=== PATIENT | female | born 1985 | race Caucasian/White ===

== ENCOUNTER 2019-01-21 15:41 | Emergency (ER) | payer MEDICARE ==
[~2019-01-21] VITALS: Ht 157.5 cm; Wt 90.9 kg
[2019-01-21 15:52] VITALS: Ht 157.5 cm; Wt 90.9 kg
[2019-01-21] MEDS ORDERED: FLUVOXAMINE MA100 M1 PO ×2 (16:00)
[2019-01-21] MEDS ORDERED: OMEPRAZOLE20 M1 PO (16:00)
[2019-01-21] MEDS ORDERED: ZOCOR40 MG PO (16:00)
[2019-01-21] MEDS ORDERED: LAMICTAL200 M1 PO (16:01)
[2019-01-21] MEDS ORDERED: TOPAMAX50 MG PO ×2 (16:02)
[2019-01-21] MEDS ORDERED: KLONOPIN1 MG PO (16:03)
[2019-01-21] MEDS ORDERED: GLUCOPHAGE850 MG PO (16:03)
[2019-01-21] MEDS ORDERED: HALOPERIDOL2 MG PO (16:03)
[2019-01-21] MEDS ORDERED: FOLATE0.4 MG PO (16:04)
[2019-01-21 16:52] LABS: BASOPHILS 0.3 % (0-2); EOSINOPHILS 7.6 % (0-7); HEMATOCRIT 37.8 % (36.0-48.0); HEMOGLOBIN 12.2 g/dL (12-16); IMMATURE GRANULOCYTES 0.3 % (0-5); MCH 28.4 pg (26.0-34.0); MCHC 32.3 g/dL (31.0-37.0); MCV 87.9 fL (80.0-100.0); MEAN PLATELET VOLUME 10.9 fL (7.4-10.4); MONOCYTES 6.7 % (2-11); NEUTROPHILS 51.1 % (40-80); PLATELET COUNT 273 10x3/uL (130-400); RDW 13.4 % (11.5-14.5)
[2019-01-21 16:56] LABS: APPEARANCE CLEAR (CLEAR); BILIRUBIN NEGATIVE (NEGATIVE); COLOR STRAW (YELLOW); GLUCOSE NEGATIVE (NEGATIVE); KETONE NEGATIVE (NEGATIVE); NITRITE NEGATIVE (NEGATIVE); PROTEIN NEGATIVE (NEGATIVE); SPECIFIC GRAVITY 1.005 (1.005-1.020); UROBILINOGEN NORMAL (NORMAL)
[2019-01-21 16:58] LABS: BACTERIA FEW /hpf (NONE SEEN); RED CELLS - URINE 0-5 /hpf (0-5); WHITE CELLS - URINE OCC /hpf (0-5)
[2019-01-21 17:18] LABS: ALKALINE PHOSPHATASE 63 U/L (46-116); ALT (SGPT) 26 U/L (10-68); BILIRUBIN - TOTAL 0.22 mg/dL (0.2-1.3); CALC OSMOLALITY 266 mosm/kg (275-300); CALCIUM 8.2 mg/dL (8.5-10.1); CHLORIDE - SERUM 102 mmol/L (98-107); CREATININE - SERUM 0.8 mg/dL (0.6-1.3); GLUCOSE 100 mg/dL (74-106); POTASSIUM - SERUM 3.6 mmol/L (3.5-5.1); PROTEIN - SERUM 6.7 g/dL (6.4-8.2); SODIUM 135 mmol/L (136-145); UREA NITROGEN 4 mg/dL (7-18); eGFR NON AFRICAN AMERICAN 89 mL/min (90-120)
[2019-01-21] MEDS ORDERED: MACROBID100 MG PO (18:17)
[2019-01-21 18:31] VITALS: BP 112/78
== END 2019-01-21 18:28 | disposition home or self-care (01) ==
LOC: D.ER 15:41
PROVIDERS: Family Medicine
DX: N39.0 Urinary tract infection, site not specified (principal); K59.01 Slow transit constipation; E78.5 Hyperlipidemia, unspecified; F32.9 Major depressive disorder, single episode, unspecified; F41.9 Anxiety disorder, unspecified; K21.9 Gastro-esophageal reflux disease without esophagitis; F20.9 Schizophrenia, unspecified

== ENCOUNTER 2019-02-15 14:23 | Inpatient (IN) | payer MEDICARE ==
[~2019-02-15] VITALS: Ht 157.5 cm; Wt 81.8 kg
[~2019-02-15 14:23] MED LIST: FLUVOXAMINE MA100 M1 PO; FOLATE0.4 MG PO; GLUCOPHAGE850 MG PO; HALOPERIDOL2 MG PO; KLONOPIN1 MG PO; LAMICTAL200 M1 PO; MACROBID100 MG PO; OMEPRAZOLE20 M1 PO; TOPAMAX50 MG PO; ZOCOR40 MG PO
[2019-02-15 15:19] LABS: BASOPHILS 0.4 % (0-2); EOSINOPHILS 5.4 % (0-7); HEMATOCRIT 38.9 % (36.0-48.0); IMMATURE GRANULOCYTES 0.2 % (0-5); LYMPHOCYTES 27.4 % (15-50); MCH 28.5 pg (26.0-34.0); MCHC 33.4 g/dL (31.0-37.0); MCV 85.3 fL (80.0-100.0); MEAN PLATELET VOLUME 10.2 fL (7.4-10.4); MONOCYTES 7.5 % (2-11); NEUTROPHILS 59.1 % (40-80); PLATELET COUNT 297 10x3/uL (130-400); RBC 4.56 10x6/uL (4.00-5.40); RDW 13.2 % (11.5-14.5)
[2019-02-15 15:29] LABS: APTT 29.8 SECONDS (22.8-39.4); INR 1.13 (0.85-1.17)
[2019-02-15 15:44] LABS: ALBUMIN 3.2 g/dL (3.4-5.0); ALKALINE PHOSPHATASE 69 U/L (46-116); ALT (SGPT) 29 U/L (10-68); BILIRUBIN - TOTAL 0.16 mg/dL (0.2-1.3); CALC OSMOLALITY 272 mosm/kg (275-300); CALCIUM 8.7 mg/dL (8.5-10.1); CARBON DIOXIDE 27.9 mmol/L (21.0-32.0); CHLORIDE - SERUM 103 mmol/L (98-107); CREATININE - SERUM 0.8 mg/dL (0.6-1.3); GLUCOSE 99 mg/dL (74-106); POTASSIUM - SERUM 4.5 mmol/L (3.5-5.1); PROTEIN - SERUM 7.4 g/dL (6.4-8.2); SODIUM 137 mmol/L (136-145); UREA NITROGEN 9 mg/dL (7-18); eGFR NON AFRICAN AMERICAN 89 mL/min (90-120)
[2019-02-15 18:36] VITALS: Ht 157.5 cm; Wt 81.8 kg
--- NOTE | 2019-02-15 20:00 | NUR ---
RESTING IN BED, RIGHT FOOT WRAPED WITH GURPREET WRAP AND ELEVATED ON PILLOWS, MOTHER AT BEDSIDE, CALL LIGHT IN REACH
[2019-02-15 21:20] VITALS: BP 113/70
[2019-02-16 04:38] VITALS: BP 132/85
--- NOTE | 2019-02-16 08:00 | NUR ---
PT RESTING IN BED WATCHING TV. NO ACUTE DISTRESS NOTED. RESP EVEN AND UNLABORED. REPORTS PAIN TO RIGHT ANKLE 6/10, BUT REPORTS PAIN MEDICATION BEING GIVEN AT EARLIER TIME AND HELPS TO RELEIVE PAIN. PT REMAINS NPO FOR SURGERY. SALINE LOC TO RIGHT HAND INTACT WITHOUT REDNESS OR EDEMA. F/C PATENT TO GRAVITY. DENIES FURTHER NEEDS. CL WITHIN REACH. ENCOURAGED TO CALL WITH NEEDS. CONTINUE POC
[2019-02-16 08:29] VITALS: BP 125/75
[2019-02-16 09:56] LABS: APPEARANCE CLEAR (CLEAR); BILIRUBIN NEGATIVE (NEGATIVE); COLOR YELLOW (YELLOW); GLUCOSE NEGATIVE (NEGATIVE); KETONE NEGATIVE (NEGATIVE); NITRITE NEGATIVE (NEGATIVE); PROTEIN TRACE mg/dL (NEGATIVE); SPECIFIC GRAVITY 1.015 (1.005-1.020); UROBILINOGEN NORMAL (NORMAL)
[2019-02-16 09:57] LABS: BACTERIA FEW /hpf (NONE SEEN); EPITHELIAL CELLS OCC /hpf (0-5); WHITE CELLS - URINE OCC /hpf (0-5)
[2019-02-16 12:30] VITALS: BP 117/80
--- NOTE | 2019-02-16 13:40 | NUR ---
PT TAKEN VIA BED TO PRE OP. NO ACUTE DISTRESS NOTED.
[2019-02-16 16:57] VITALS: BP 133/85
--- NOTE | 2019-02-16 20:00 | NUR ---
ALERT RESTIGN IN BED, DENIES PAINACE WRAP INPLACE TO LEFT FOOT, SEE SHIFT ASSESSMENT, MOTHER AT BEDSIDE, CALL LIGHT IN REACH
[2019-02-16 22:16] VITALS: BP 135/85
[2019-02-17 04:51] VITALS: BP 101/63
[2019-02-17 05:21] LABS: BASOPHILS 0 % (0-2); EOSINOPHILS 0 % (0-7); HEMATOCRIT 39.8 % (36.0-48.0); IMMATURE GRANULOCYTES 0.3 % (0-5); LYMPHOCYTES 10.6 % (15-50); MCH 28.6 pg (26.0-34.0); MCHC 32.7 g/dL (31.0-37.0); MEAN PLATELET VOLUME 10.6 fL (7.4-10.4); MONOCYTES 2.9 % (2-11); NEUTROPHILS 86.2 % (40-80); PLATELET COUNT 319 10x3/uL (130-400); RBC 4.55 10x6/uL (4.00-5.40); RDW 13.6 % (11.5-14.5)
[2019-02-17 05:27] LABS: MCV 87.5 fL (80.0-100.0); WBC 13.7 10x3/uL (4.8-10.8)
[2019-02-17 05:56] LABS: ALBUMIN 3.2 g/dL (3.4-5.0); ALKALINE PHOSPHATASE 64 U/L (46-116); ALT (SGPT) 24 U/L (10-68); BILIRUBIN - TOTAL 0.31 mg/dL (0.2-1.3); CALC OSMOLALITY 278 mosm/kg (275-300); CALCIUM 8.6 mg/dL (8.5-10.1); CARBON DIOXIDE 26.5 mmol/L (21.0-32.0); CHLORIDE - SERUM 104 mmol/L (98-107); CREATININE - SERUM 0.7 mg/dL (0.6-1.3); GLUCOSE 130 mg/dL (74-106); PROTEIN - SERUM 7.7 g/dL (6.4-8.2); SODIUM 139 mmol/L (136-145); UREA NITROGEN 10 mg/dL (7-18); eGFR NON AFRICAN AMERICAN > 90 mL/min (90-120)
--- NOTE | 2019-02-17 07:59 | NUR ---
PT RESTING IN BED WITH EYES CLOSED. CHEST RISING AND FALLING. NO S/S OF ACUTE DISTRESS. CL IN PLACE.
[2019-02-17 08:30] VITALS: BP 115/70
--- NOTE | 2019-02-17 12:45 | NUR ---
DC F/C. 750 ML OF YELLOW URINE NOTED IN BAG
--- NOTE | 2019-02-17 13:43 | MORECARE ---
CASE MANAGEMENT DISCHARGE SUMMARY PATIENT: LAZ TREVIÑO UNIT: [id number] ADM DATE: 02/16/19 AGE: 33 : [birth year] SEX: F ROOM/BED: D.2210 AUTHOR: LUDA PENA PHYSICIAN: REFERRING PHYSICIAN: MARIE HERNANDEZ MD DATE OF SERVICE: 02/17/19 Discharge Plan Patient Name: LAZ TREVIÑO Facility: [facility]:[place] : 1985 Planned Disposition: Home or Self Care Anticipated Discharge Date: Discharge Date: Expected LOS: Initial Reviewer: [email or web address] Initial Review Date: 02/15/2019 Generated: 02/17/19 2:43 pm DCPIA - Discharge Planning Initial Assessment Updated by [email or web address]: Linnette Cm on 02/17/19 1:40 pm * Is the patient Alert and Oriented? Yes * How many steps to enter\exit or inside your home? * PCP MERLE * Pharmacy [facility] [address] * Preadmission Environment Home with Family * ADLs Independent * List name and contact numbers for known caregivers / representatives who currently or will assist patient after discharge: BRUNILDA (MOM) [phone] * Verbal permission to speak to the caregivers and representatives has been obtained from the patient. Yes * Community resources currently utilized None * Additional services required to return to the preadmission environment? Yes * Can the patient safely return to the preadmission environment? Yes * Has this patient been hospitalized within the prior 30 days at any hospital? No External Providers External Provider: [facility] Next Contact Date: Service Request Date: Service Type: Resolution: Reviewer: Comments: Coverage Notice Reviewer: [id number] - Linnette Cm Notice Issued Date-Time: 02/17/2019 13:36 Notice Type: Patient Choice Letter Notice Delivered To: Family Member Relationship to Patient: Mother Np Name: Delivery Method: HAND - Hand Delivered Cynthia Days: Prior Verbal Notification: Recipient Understood Notice: Yes Recipient Signature: Yes Med Rec Note Co-signed by Attending: Coverage Notice Comment: Patient Name: LAZ TREVIÑO Page 51069 at 1343 All edits/amendments must be made on the electronic document DICTATION DATE: 02/17/19 1343 DECORATOR CONSULTANT: MEHDI 02/17/19 1343 RPT#: [id number] DC DATE: STATUS: ADM IN [facility] [address] [place] [address] END OF REPORT
--- NOTE | 2019-02-17 13:52 | MORECARE ---
CASE MANAGEMENT DISCHARGE SUMMARY PATIENT: LAZ TREVIÑO UNIT: [id number] ADM DATE: 02/16/19 AGE: 33 : 89 SEX: F ROOM/BED: D.2210 AUTHOR: JEAN,DOC PHYSICIAN: REFERRING PHYSICIAN: MARIE HERNANDEZ MD DATE OF SERVICE: 02/17/19 Discharge Plan Patient Name: LAZ TREVIÑO Facility: [facility]:[place] : 1985 Planned Disposition: Home or Self Care Anticipated Discharge Date: Discharge Date: Expected LOS: Initial Reviewer: [email or web address] Initial Review Date: 02/15/2019 Generated: 02/17/19 2:51 pm Comments DCP- Discharge Planning Updated by [email or web address]: Linnette Cm on 02/17/19 12:[address] Patient Name: LAZ TREVIÑO Admission Status: ER Accout number: [id number] Admission Date: 02-16-2019 : 1985 Admission Diagnosis: Attending: MAREI HERNANDEZ Current LOS: 1 Anticipated DC Date: Planned Disposition: Home or Self Care Primary Insurance: MEDICARE A & B Discharge Planning Comments: CM met with patient & mother to complete initial dc planning assessment. CM educated patient on the CM role and verbal consent given by patient to complete assessment. Patient lives at home with her mom where she is independent with her care. At discharge patient plans to return home and feels this is a safe discharge. CM discussed availability of home health, rehab services, and medical equipment. Patient denied known discharge needs at this time. Mom states that she does not need home health, that she is with her all the time. She will need a walker and BSC. I have ordered both from [facility] [facility] and [employer] message for Kae. CM will continue to follow and will assist as needed with dc plans/needs. Dry Roaster: Linnette Cm DCPIA - Discharge Planning Initial Assessment Updated by [id number]: Linnette Cm on 02/17/19 1:40 pm * Is the patient Alert and Oriented? Yes * How many steps to enter\exit or inside your home? * PCP BLOOM * Pharmacy [facility] [address] * Preadmission Environment Home with Family * ADLs Independent * List name and contact numbers for known caregivers / representatives who currently or will assist patient after discharge: BRUNILDA (MOM) [phone] * Verbal permission to speak to the caregivers and representatives has been obtained from the patient. Yes * Community resources currently utilized None * Additional services required to return to the preadmission environment? Yes * Can the patient safely return to the preadmission environment? Yes * Has this patient been hospitalized within the prior 30 days at any hospital? No Coverage Notice Reviewer: [id number] Danika Cm Notice Issued Date-Time: 02/17/2019 13:36 Notice Type: Patient Choice Letter Notice Delivered To: Family Member Relationship to Patient: Mother Food Safety Officer Name: Delivery Method: HAND - Hand Delivered Cynthia Days: Prior Verbal Notification: Recipient Understood Notice: Yes Recipient Signature: Yes Med Rec Note Co-signed by Attending: Coverage Notice Comment: Last DP export: 02/17/19 12:43 p Patient Name: LAZ TREVIÑO Page [id number] at 1352 All edits/amendments must be made on the electronic document DICTATION DATE: 02/17/19 1351 FOUNDRY ENGINEER: MEHDI 02/17/19 1351 RPT#: [id number] DC DATE: STATUS: ADM IN [facility] [address] [place] [address] END OF REPORT
[2019-02-17 14:08] VITALS: BP 129/69
--- NOTE | 2019-02-17 15:05 | OP ---
PATIENT NAME: LAZ TREVIÑO MEDICAL RECORD: [id number] :[birth year] LOCATION:D.MS [id number] ADMISSION DATE:02/16/19 SURGEON: OLGA CASTELAN DO DATE OF OPERATION: 02/16/2019 PROCEDURE PERFORMED: Right ankle open reduction and internal fixation. PREOPERATIVE DIAGNOSIS: Right ankle fracture dislocation. POSTOPERATIVE DIAGNOSIS: Right ankle fracture dislocation. INDICATIONS: Ms. Treviño is a 33-year-old autistic female who lives with her mom. [place] was at the park yesterday and twisted her ankle. She suffered a fracture dislocation, posterolateral dislocation of the ankle. This was reduced in the ER and splinted. She was then admitted overnight. She was informed of the risks and benefits of procedure as well as her mother of infection, bleeding, damage to nerves and vessels, blood clots, need for further surgery. She was consented, her mother signed the consent. SURGEON: Olga Castelan DO DESCRIPTION OF PROCEDURE: The patient was taken to the operative suite after given a block by anesthesia in the preoperative area, laid in the supine position. The right lower extremity was prepped and draped in sterile fashion with a bump under the right hip. Once this was prepped and draped, a timeout was performed and everybody was agreeance as the correct side, site, patient and procedure. The Esmarch was then used to exsanguinate the right lower extremity. The right lower extremity Esmarch was removed. Then, the incision began over the fibula. Dissection was made down carefully to the fibula itself. The fracture was cleaned out and then a [id number]-jwteb was used to reduce the fracture. Plate was then put on and locked, pins were put into confirm good placement on AP and lateral and once we were in satisfactory position and the pins were in place, the distal locking screws were put in 4 of them and then 1 cortical screw proximally and 2 locking screws proximally. Then, a TightRope was used to go across to secure the fracture due to the dislocation for extra fixation. This was very stable on AP and lateral, it was confirmed that no medial space widening or subluxation was noted of the ankle after the fixation. The tourniquet was then let down at 34 minutes and any bleeding was coagulated. The incision was closed with 2-0 Vicryl in an inverted interrupted fashion and then a Zipline was placed over the incision. Adaptic, 4 x 4, ABD, Webril, and Maico wrap were then placed on the ankle. The patient was awakened and taken to recovery in stable condition. Blood loss approximately 15 mL. COMPLICATIONS: None. TRANSINT:[id number] Voice Confirmation ID: [id number] DOCUMENT ID: [id number] OPERATIVE REPORT [id number] LAZ TREVIÑO MICHAEL D, DO at 1505 CC: [id number] DICTATION DATE: 02/16/19 1607 FILLING MACHINE TENDER: 02/16/192010 ADM IN [facility] [address] [place] [address]
[2019-02-17] MEDS ORDERED: HYDROCODON-ACE1 EA10 PO (16:42)
[2019-02-17] MEDS ORDERED: BAYER CHEWABLE81 MG PO (16:43)
--- NOTE | 2019-02-17 18:22 | NUR ---
DC INSTRUCTIONS AND EDUCATION GIVEN TO PT. ALL BELONGINGS AND EQUIPMENT SENT DOWN TO LOBBY WITH PT BY CNAS. SERVICE PROVIDER PUSHED PT TO LOBBY VIA WC. NO S.S OF ACUTE DISTRESS. CL IN PLACE
== END 2019-02-17 18:24 | disposition home or self-care (01) | DRG 493 ==
LOC: D.ER 14:23 → D.MS 17:17 → OBSVTIME 17:24 → D.MS 02-16 19:25
PROVIDERS: Family Medicine; Orthopaedic Surgery; ADMIT Internal Medicine Nephrology; ATTEND Internal Medicine Nephrology
PROC: 0QSG04Z Reposition Right Tibia with Internal Fixation Device, Open Approach (ICD-10-PCS; 2019-02-16)
PROC: 0QSJ04Z Reposition Right Fibula with Internal Fixation Device, Open Approach (ICD-10-PCS; principal; 2019-02-16 12:15)
DX: S82.891A Other fracture of right lower leg, initial encounter for closed fracture (principal); F84.0 Autistic disorder; E78.5 Hyperlipidemia, unspecified; K21.9 Gastro-esophageal reflux disease without esophagitis